=== PATIENT | female | born 1950 | race Caucasian/White ===

== ENCOUNTER 2018-12-19 22:25 | Inpatient (IN) | payer SELFPAY ==
[~2018-12-19] VITALS: Ht 162.6 cm; Wt 54.9 kg
[2018-12-19] MEDS ORDERED: SODIUM CHLORIDE 0.9% 1,000 ML IV ONE (23:00)
[2018-12-19] MEDS ORDERED: INSULIN REGULAR, HUMAN 100 UNITS/ML IVP ONE (23:00)
[2018-12-19] MEDS ORDERED: METF-960 PO (23:05)
[2018-12-19 23:07] LABS: GLUCOSE,POINT OF CARE 417 MG/DL (70-110)
[2018-12-19 23:40] LABS: HEMATOCRIT 30.6 % (36-46); HEMOGLOBIN 10.2 g/dL (12.0-16.0); MEAN CORPUSCULAR HEMOGLOBIN 31.5 pg (26.0-34.0); MEAN CORPUSCULAR HGB CONC 33.4 G/dL (31.0-37.0); MEAN CORPUSCULAR VOLUME 94 fL (80-100); PLATELET COUNT (AUTO) 188 K/uL (150-450); RED BLOOD CELL COUNT(AUTO) 3.25 MIL/uL (4.00-5.20); RED CELL DISTRIBUTION WIDTH 13.2 % (11.5-14.5)
[2018-12-20] LABS: ALBUMIN 2.5 g/dL (3.4-5.0); BILIRUBIN,TOTAL 0.4 mg/dL (0.1-1.0); CALCIUM, TOTAL 9.1 mg/dL (8.8-10.5); CREATININE 1.12 mg/dL (0.60-1.30); POTASSIUM 3.8 mmol/L (3.5-5.1); TOTAL PROTEIN, SERUM 6.1 g/dL (6.4-8.2)
[2018-12-20 00:02] LABS: BAND NEUTROPHILS % (MANUAL) 31 % (0-5); LYMPHOCYTES % (MANUAL) 2 % (22-44); MONOCYTES % (MANUAL) 1 % (2-9); PLATELET MORPHOLOGY COMMENT GIANT PLTS PRESENT; SEGMENTED NEUTROPHILS % 66 % (40-70)
[2018-12-20] MEDS ORDERED: 0.9% SODIUM CHLORIDE 10 ML SYRINGE IVP PRN ×2 (00:15→05:15)
[2018-12-20] MEDS ORDERED: ACETAMINOPHEN 500 MG TABLET PO ONE (00:15)
[2018-12-20] MEDS ORDERED: SODIUM CHLORIDE 0.9% 1,000 ML IV ONE ×2 (00:15→02:30)
[2018-12-20 00:52] LABS: GLUCOSE,POINT OF CARE 206 MG/DL (70-110)
[2018-12-20] MEDS ORDERED: LORazepam 2 MG/ML VIAL IVP ONE (01:00)
[2018-12-20] MEDS ORDERED: ACETAMINOPHEN 1000 MG/ISO-OSM 100 ML IV ONE (01:00)
[2018-12-20 01:04] LABS: APPEARANCE,URINE CLOUDY (CLEAR); BILIRUBIN,URINE NEGATIVE (NEGATIVE); GLUCOSE, URINE (UA) >=1000 mg/dL (NEGATIVE); KETONES,URINE NEGATIVE (NEGATIVE); LEUKOCYTE ESTERASE ,URINE SMALL (NEGATIVE); NITRATE,URINE NEGATIVE (NEGATIVE); OCCULT BLOOD,URINE MODERATE (NEGATIVE); PH,URINE 6.5 (5.0-8.0); PROTEIN,URINE POS 1+ (NEGATIVE); UROBILINOGEN,URINE 0.2 mg/dL (<=1.0)
[2018-12-20] MEDS ORDERED: CefTRIAXone 1 GM/DEXTROSE 50 ML IV ONE (01:15)
[2018-12-20 01:20] LABS: BACTERIA,URINE Moderate /HPF (None Seen); SQUAMOUS EPITHELIAL CELL,UR Rare /LPF (None Seen)
[2018-12-20 01:33] LABS: LACTIC ACID 4.3 mmol/L (0.4-2.0)
[2018-12-20] MEDS ORDERED: IBUPROFEN 100 MG/5 ML SUSPENSION UDCUP PO ONE (01:45)
[2018-12-20 01:53] LABS: GLUCOSE,POINT OF CARE 187 MG/DL (70-110)
[2018-12-20 03:02] LABS: INFLUENZA TYPE A NEGATIVE FOR TYPE A (NEGATIVE); INFLUENZA TYPE B NEGATIVE FOR TYPE B (NEGATIVE)
[2018-12-20] MEDS ORDERED: ONDANSETRON HCL 4 MG/2 ML VIAL IVP PRN (05:15)
[2018-12-20] MEDS ORDERED: ACETAMINOPHEN 325 MG TABLET PO PRN (05:15)
[2018-12-20 08:04] LABS: GLUCOSE,POINT OF CARE 203 MG/DL (70-110)
[2018-12-20 09:02] VITALS: BP 123/66
[2018-12-20 11:18] VITALS: BP 113/68
[2018-12-20] MEDS ORDERED: DEXTROSE 50%-WATER 25 GM/50 ML SYRINGE IVP PRN ×2 (12:15→17:30)
[2018-12-20] MEDS ORDERED: INSULIN LISPRO 100 UNITS/ML SQ PRN (12:15)
[2018-12-20] MEDS ORDERED: SODIUM CHLORIDE 0.9% 250 ML IV ONE (13:31)
[2018-12-20] MEDS: PIPERACILLIN/TAZO 3.375 GM/D5W 50 ML IV SCH ×3 (13:34→23:32)
[2018-12-20 15:37] VITALS: BP 115/69
[2018-12-20] MEDS: INSULIN LISPRO 100 UNITS/ML SQ PRN (17:38)
[2018-12-20 20:20] VITALS: BP 120/71
[2018-12-20 21:55] LABS: GLUCOMETER DEV NAME(LOC) 5N.2; GLUCOSE,POINT OF CARE 279 MG/DL (70-110)
[2018-12-20 21:55] LABS: GLUCOMETER DEV NAME(LOC) 5N.1; GLUCOSE,POINT OF CARE 167 MG/DL (70-110)
[2018-12-20 23:51] VITALS: BP 125/97
[2018-12-21 02:24] LABS: GLUCOMETER DEV NAME(LOC) 5N.2; GLUCOSE,POINT OF CARE 141 MG/DL (70-110)
[2018-12-21 05:46] VITALS: BP 131/79
[2018-12-21 06:01] LABS: BASOPHILS % (AUTO) 0.1 % (0.0-2.0); EOSINOPHILS % (AUTO) 0.9 % (1.0-6.0); HEMATOCRIT 31.1 % (36-46); HEMOGLOBIN 10.6 g/dL (12.0-16.0); LYMPHOCYTES # (AUTO) 0.7 K/uL (1.0-4.8); MEAN CORPUSCULAR HEMOGLOBIN 31.9 pg (26.0-34.0); MEAN CORPUSCULAR HGB CONC 34.1 G/dL (31.0-37.0); MEAN CORPUSCULAR VOLUME 94 fL (80-100); MONOCYTES % (AUTO) 5.4 % (2.0-9.0); NEUTROPHILS # (AUTO) 16.3 K/uL (1.8-7.7); PLATELET COUNT (AUTO) 167 K/uL (150-450); RED BLOOD CELL COUNT(AUTO) 3.32 MIL/uL (4.00-5.20); RED CELL DISTRIBUTION WIDTH 13.6 % (11.5-14.5)
[2018-12-21 06:16] LABS: NEUTROPHILS % (AUTO) 89.6 % (40.0-70.0)
[2018-12-21] MEDS: PIPERACILLIN/TAZO 3.375 GM/D5W 50 ML IV SCH ×3 (06:28→20:05)
[2018-12-21 06:29] LABS: ALBUMIN 2.1 g/dL (3.4-5.0); BILIRUBIN,TOTAL 0.4 mg/dL (0.1-1.0); CALCIUM, TOTAL 9.1 mg/dL (8.8-10.5); CREATININE 1.09 mg/dL (0.60-1.30); POTASSIUM 3.3 mmol/L (3.5-5.1); TOTAL PROTEIN, SERUM 5.7 g/dL (6.4-8.2)
[2018-12-21 06:39] LABS: GLUCOMETER DEV NAME(LOC) 5N.2; GLUCOSE,POINT OF CARE 146 MG/DL (70-110)
[2018-12-21 07:40] VITALS: BP 134/62
[2018-12-21] MEDS: INSULIN LISPRO 100 UNITS/ML SQ PRN ×3 (11:34→20:26)
[2018-12-21 15:52] VITALS: BP 107/66
[2018-12-21] MEDS ORDERED: HYDROCODONE/ACETAMINOPHEN 5-325 MG TABLET PO PRN (18:45)
[2018-12-21] MEDS ORDERED: BISACODYL 10 MG RECTAL RECTAL SUPPOSITORY PR PRN (18:45)
[2018-12-21] MEDS ORDERED: ONDANSETRON HCL 4 MG/2 ML VIAL IVP PRN (18:45)
[2018-12-21] MEDS ORDERED: MAGNESIUM HYDROXIDE SUSPENSION 30 ML UDCUP PO PRN (18:45)
[2018-12-21] MEDS ORDERED: ALBUTEROL SULFATE 2.5 MG/0.5 ML NEB SOLUTION NEB PRN (18:45)
[2018-12-21] MEDS ORDERED: ACETAMINOPHEN 325 MG TABLET PO PRN (18:45)
[2018-12-21] MEDS ORDERED: SODIUM CHLORIDE 0.9% 1,000 ML IV ONE (18:45)
[2018-12-21] MEDS ORDERED: ZOLPIDEM TARTRATE 5 MG TABLET PO PRN (18:45)
[2018-12-21] MEDS ORDERED: MORPHINE SULFATE 4 MG/ML SYRINGE IVP PRN (18:45)
[2018-12-21] MEDS ORDERED: IPRATROPIUM BROMIDE 0.5 MG/2.5 ML NEB SOLUTION NEB PRN (18:45)
[2018-12-21 19:53] VITALS: BP 139/73
[2018-12-21] MEDS: DOCUSATE SODIUM 100 MG CAPSULE PO SCH (20:07)
[2018-12-21 22:26] LABS: BASOPHILS % (AUTO) 0.3 % (0.0-2.0); EOSINOPHILS % (AUTO) 1.2 % (1.0-6.0); HEMOGLOBIN 10.7 g/dL (12.0-16.0); LYMPHOCYTES # (AUTO) 0.7 K/uL (1.0-4.8); LYMPHOCYTES % (AUTO) 6.2 % (22.0-44.0); MEAN CORPUSCULAR HEMOGLOBIN 31.4 pg (26.0-34.0); MEAN CORPUSCULAR HGB CONC 33.5 G/dL (31.0-37.0); MEAN CORPUSCULAR VOLUME 94 fL (80-100); MONOCYTES # (AUTO) 0.9 K/uL (0.1-1.0); MONOCYTES % (AUTO) 7.8 % (2.0-9.0); NEUTROPHILS # (AUTO) 10.3 K/uL (1.8-7.7); NEUTROPHILS % (AUTO) 84.5 % (40.0-70.0); PLATELET COUNT (AUTO) 192 K/uL (150-450); RED BLOOD CELL COUNT(AUTO) 3.41 MIL/uL (4.00-5.20); RED CELL DISTRIBUTION WIDTH 13.9 % (11.5-14.5)
[2018-12-21 22:38] LABS: CREATININE 1.12 mg/dL (0.60-1.30)
[2018-12-21 22:44] LABS: ALBUMIN 1.9 g/dL (3.4-5.0); BILIRUBIN,TOTAL 0.7 mg/dL (0.1-1.0); TOTAL PROTEIN, SERUM 5.7 g/dL (6.4-8.2)
[2018-12-22] VITALS (12 sets, daily range): BP systolic 124–142; BP diastolic 64–75
[2018-12-22] MEDS: PIPERACILLIN/TAZO 3.375 GM/D5W 50 ML IV SCH ×4 (00:36→18:18)
[2018-12-22] MEDS: HEPARIN SODIUM,PORCINE 5,000 UNITS/ML VIAL SQ SCH ×3 (00:37→17:14)
[2018-12-22] MEDS: INSULIN LISPRO 100 UNITS/ML SQ PRN ×4 (05:55→21:19)
[2018-12-22 06:15] LABS: GLUCOMETER DEV NAME(LOC) 5N.2; GLUCOSE,POINT OF CARE 330 MG/DL (70-110)
[2018-12-22 06:15] LABS: GLUCOMETER DEV NAME(LOC) 5N.2; GLUCOSE,POINT OF CARE 142 MG/DL (70-110)
[2018-12-22 06:17] LABS: BASOPHILS % (AUTO) 0.4 % (0.0-2.0); EOSINOPHILS % (AUTO) 1.5 % (1.0-6.0); HEMATOCRIT 31.4 % (36-46); HEMOGLOBIN 10.7 g/dL (12.0-16.0); LYMPHOCYTES # (AUTO) 0.9 K/uL (1.0-4.8); LYMPHOCYTES % (AUTO) 8.4 % (22.0-44.0); MEAN CORPUSCULAR HEMOGLOBIN 32.1 pg (26.0-34.0); MEAN CORPUSCULAR HGB CONC 34.2 G/dL (31.0-37.0); MEAN CORPUSCULAR VOLUME 94 fL (80-100); MONOCYTES # (AUTO) 0.9 K/uL (0.1-1.0); MONOCYTES % (AUTO) 8.7 % (2.0-9.0); NEUTROPHILS # (AUTO) 8.5 K/uL (1.8-7.7); PLATELET COUNT (AUTO) 193 K/uL (150-450); RED BLOOD CELL COUNT(AUTO) 3.35 MIL/uL (4.00-5.20); RED CELL DISTRIBUTION WIDTH 13.8 % (11.5-14.5)
[2018-12-22 06:24] LABS: GLUCOMETER DEV NAME(LOC) 5N.1; GLUCOSE,POINT OF CARE 152 MG/DL (70-110)
[2018-12-22 06:25] LABS: GLUCOMETER DEV NAME(LOC) 5N.1; GLUCOSE,POINT OF CARE 201 MG/DL (70-110)
[2018-12-22 06:36] LABS: ALBUMIN 1.9 g/dL (3.4-5.0); BILIRUBIN,TOTAL 0.7 mg/dL (0.1-1.0); CALCIUM, TOTAL 8.6 mg/dL (8.8-10.5); CREATININE 1.23 mg/dL (0.60-1.30); POTASSIUM 3.1 mmol/L (3.5-5.1); TOTAL PROTEIN, SERUM 5.7 g/dL (6.4-8.2)
[2018-12-22] MEDS: PANTOPRAZOLE SODIUM 40 MG/VIAL IVP SCH (08:40)
[2018-12-22] MEDS: DOCUSATE SODIUM 100 MG CAPSULE PO SCH ×2 (08:41→20:55)
[2018-12-22] MEDS ORDERED: SODIUM CHLORIDE 0.9% 250 ML IV ONE (11:56)
[2018-12-22] MEDS ORDERED: LITH300C3 PO (12:26)
[2018-12-22] MEDS ORDERED: CHOL200012 PO (12:26)
[2018-12-22] MEDS ORDERED: ATOR40TA28 PO (12:26)
[2018-12-22] MEDS ORDERED: TRAZ-219 PO (12:26)
[2018-12-22] MEDS ORDERED: CRAN450T10 PO (12:26)
[2018-12-22 13:49] LABS: GLUCOMETER DEV NAME(LOC) 5N.2; GLUCOSE,POINT OF CARE 257 MG/DL (70-110)
[2018-12-22] MEDS: SODIUM CHLORIDE 0.9% 1,000 ML IV SCH (17:07)
[2018-12-22 18:54] LABS: GLUCOMETER DEV NAME(LOC) 5N.2; GLUCOSE,POINT OF CARE 216 MG/DL (70-110)
[2018-12-22] MEDS ORDERED: POTASSIUM CHLORIDE 20 MEQ ER TABLET PO ONE (20:30)
[2018-12-22 23:34] LABS: GLUCOMETER DEV NAME(LOC) 5N.2; GLUCOSE,POINT OF CARE 234 MG/DL (70-110)
[2018-12-23] MEDS: HEPARIN SODIUM,PORCINE 5,000 UNITS/ML VIAL SQ SCH ×3 (00:07→16:00)
[2018-12-23] MEDS: PIPERACILLIN/TAZO 3.375 GM/D5W 50 ML IV SCH ×4 (00:07→19:00)
[2018-12-23] MEDS: SODIUM CHLORIDE 0.9% 1,000 ML IV SCH ×2 (05:52→15:40)
[2018-12-23 06:12] VITALS: BP 139/74
[2018-12-23] MEDS: INSULIN LISPRO 100 UNITS/ML SQ PRN ×3 (06:29→17:41)
[2018-12-23 07:22] LABS: BASOPHILS % (AUTO) 0.2 % (0.0-2.0); EOSINOPHILS % (AUTO) 1.4 % (1.0-6.0); HEMATOCRIT 33.4 % (36-46); HEMOGLOBIN 11.2 g/dL (12.0-16.0); LYMPHOCYTES # (AUTO) 0.7 K/uL (1.0-4.8); LYMPHOCYTES % (AUTO) 6.7 % (22.0-44.0); MEAN CORPUSCULAR HEMOGLOBIN 31.9 pg (26.0-34.0); MEAN CORPUSCULAR HGB CONC 33.5 G/dL (31.0-37.0); MEAN CORPUSCULAR VOLUME 95 fL (80-100); MONOCYTES % (AUTO) 9.2 % (2.0-9.0); NEUTROPHILS # (AUTO) 8.6 K/uL (1.8-7.7); NEUTROPHILS % (AUTO) 82.5 % (40.0-70.0); PLATELET COUNT (AUTO) 257 K/uL (150-450); RED CELL DISTRIBUTION WIDTH 13.9 % (11.5-14.5)
[2018-12-23 07:39] LABS: GLUCOMETER DEV NAME(LOC) 5N.1; GLUCOSE,POINT OF CARE 263 MG/DL (70-110)
[2018-12-23 08:36] VITALS: BP 117/71
[2018-12-23] MEDS: PANTOPRAZOLE SODIUM 40 MG/VIAL IVP SCH (08:58)
[2018-12-23] MEDS: DOCUSATE SODIUM 100 MG CAPSULE PO SCH (08:58)
[2018-12-23 10:48] VITALS: BP 149/73
[2018-12-23 12:53] LABS: CALCIUM, TOTAL 8.8 mg/dL (8.8-10.5); CREATININE 1.12 mg/dL (0.60-1.30); POTASSIUM 3.5 mmol/L (3.5-5.1)
[2018-12-23] MEDS ORDERED: POTASSIUM CHLORIDE 20 MEQ ER TABLET PO ONE (13:00)
[2018-12-23] MEDS ORDERED: LEVO750T21 PO (15:52)
[2018-12-23 16:36] VITALS: BP 122/78
[2018-12-23] MEDS ORDERED: LOPERAMIDE HCL 2 MG CAPSULE PO PRN (17:30)
[2018-12-23 19:39] LABS: GLUCOMETER DEV NAME(LOC) 5N.1; GLUCOSE,POINT OF CARE 290 MG/DL (70-110)
[2018-12-23 19:39] LABS: GLUCOMETER DEV NAME(LOC) 5N.1; GLUCOSE,POINT OF CARE 301 MG/DL (70-110)
== END 2018-12-23 20:30 | disposition home or self-care (01) | DRG 871 ==
LOC: EMS 22:26 → 5N 12-20 04:00
PROVIDERS: ADMIT Hospitalist; ATTEND Hospitalist
DX: A41.9 Sepsis, unspecified organism (principal); E43 Unspecified severe protein-calorie malnutrition; E87.1 Hypo-osmolality and hyponatremia; N39.0 Urinary tract infection, site not specified; E86.0 Dehydration; E87.6 Hypokalemia; E11.65 Type 2 diabetes mellitus with hyperglycemia; R62.7 Adult failure to thrive; H70.11 Chronic mastoiditis, right ear; Z68.22 Body mass index [BMI] 22.0-22.9, adult; Z68.20 Body mass index [BMI] 20.0-20.9, adult
CPT/HCPCS: 51701; 51702; 70450; 83605; 87040; 87086; 87205; 87804; 93005; C9113; G0378; J0131; J0696; J1644; J1815; J2060; J2543; J7030; J7050